=== PATIENT | male | born 1985 | race Caucasian/White ===

== ENCOUNTER 2019-07-18 04:14 | Emergency (ER) | payer MEDICARE, MEDICAID ==
[~2019-07-18] VITALS: Ht 180.3 cm; Wt 100.0 kg
[2019-07-18 04:17] VITALS: BP 13/83
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
== END 2019-07-18 05:57 | disposition home or self-care (01) ==
LOC: ER 04:16
DX: G40.909 Epilepsy, unspecified, not intractable, without status epilepticus (principal); R32 Unspecified urinary incontinence
CPT/HCPCS: 99283

== ENCOUNTER 2020-01-13 14:13 | Emergency (ER) | payer MEDICARE, MEDICAID ==
[~2020-01-13] VITALS: Ht 172.7 cm; Wt 90.0 kg
[2020-01-13 14:32] VITALS: BP 118/85
== END 2020-01-13 15:35 | disposition home or self-care (01) ==
LOC: ER 14:14
DX: S00.12XA Contusion of left eyelid and periocular area, initial encounter (principal); Z86.69 Personal history of other diseases of the nervous system and sense organs; Y09 Assault by unspecified means; Y93.89 Activity, other specified; Y92.89 Other specified places as the place of occurrence of the external cause; Y99.8 Other external cause status
CPT/HCPCS: 99282

== ENCOUNTER 2020-04-30 10:14 | Emergency (ER) | payer MEDICARE, MEDICAID ==
[~2020-04-30] VITALS: Ht 177.8 cm; Wt 85.0 kg
[2020-04-30 10:19] VITALS: BP 122/81
== END 2020-04-30 11:05 | disposition home or self-care (01) ==
LOC: ER 10:15
DX: R56.9 Unspecified convulsions (principal); Z76.0 Encounter for issue of repeat prescription; Z86.69 Personal history of other diseases of the nervous system and sense organs
CPT/HCPCS: 99281

== ENCOUNTER 2021-06-20 22:52 | Emergency (ER) | payer MEDICARE, MEDICAID ==
[~2021-06-20] VITALS: Ht 172.7 cm; Wt 81.8 kg
[2021-06-20 23:18] VITALS: BP 140/98
== END 2021-06-21 02:08 | disposition left against medical advice (07) ==
LOC: ER 22:53
DX: G47.00 Insomnia, unspecified (principal); Z53.21 Procedure and treatment not carried out due to patient leaving prior to being seen by health care provider

== ENCOUNTER 2022-11-10 12:33 | Emergency (ER) | payer MEDICARE, MEDICAID ==
[~2022-11-10] VITALS: Ht 172.7 cm; Wt 81.8 kg
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
[2022-11-10] MEDS ORDERED: DIVA500T9 PO (14:41)
[2022-11-10] MEDS ORDERED: BENZ2TAB7 PO (14:41)
[2022-11-10] MEDS ORDERED: LURA80TA4 PO (14:41)
[2022-11-10] MEDS ORDERED: DIVA250T8 PO (14:41)
[2022-11-10 14:52] LABS: CLARITY,URINE CLEAR (Clear); COLOR,URINE STRAW (Yellow); GLUCOSE, URINE NEGATIVE (Neg); KETONES,URINE NEGATIVE (Neg); LEUKOCYTE ESTERASE ,URINE NEGATIVE (Neg); NITRITES, URINE NEGATIVE (Neg); OCCULT BLOOD,URINE TRACE-INTACT (Neg); PH,URINE 6.5 (4.8-8.0); PROTEIN,URINE NEGATIVE (Neg); UROBILINOGEN,URINE 0.2 E.U/dL (0.2-1.0)
[2022-11-10 14:56] LABS: UA COLLECTION TYPE VOIDED
[2022-11-10 14:57] LABS: BACTERIA,URINE NONE SEEN /HPF (Neg); MUCUS STRANDS NONE SEEN /LPF (Neg); RBC,URINE 0-2 /HPF (0-2); SQUAMOUS EPITHELIAL CELL,UR NONE SEEN /LPF (FEW); WBC,URINE 0-4 /HPF (0-4)
[2022-11-10 15:23] LABS: BASOPHILS % (AUTO) 0.1 % (0-1); EOSINOPHILS % (AUTO) 0 % (0-6); HEMATOCRIT 42.5 % (42.0-52.0); HEMOGLOBIN 14.6 g/dl (14.0-17.9); LYMPHOCYTES # (AUTO) 1.5 X10'3 (1.1-4.8); LYMPHOCYTES % (AUTO) 12.5 % (21-51); MEAN CORPUSCULAR HEMOGLOBIN 30.4 PG (27.0-31.0); MEAN CORPUSCULAR HGB CONC 34.3 g/dL (33.0-36.5); MEAN CORPUSCULAR VOLUME 88.8 FL (78-98); MEAN PLATELET VOLUME 7.6 FL (7.4-10.4); MONOCYTES # (AUTO) 1.3 X10'3 (0-0.9); MONOCYTES % (AUTO) 10.6 % (2-12); NEUTROPHILS # (AUTO) 9.5 X10'3 (1.8-7.7); NEUTROPHILS % (AUTO) 76.8 % (42-75); PLATELET COUNT 274 X10'3 (140-440); RED BLOOD COUNT 4.79 X10'6 (4.70-6.10); RED CELL DISTRIBUTION WIDTH 13.3 % (11.5-14.5); WHITE BLOOD COUNT 12.4 X10'3 (4.5-11.0)
[2022-11-10 15:38] LABS: URINE AMPHETAMINE SCREEN NEGATIVE (Neg); URINE BARBITUATE SCREEN NEGATIVE (Neg); URINE BENZODIAZEPINES SCREEN NEGATIVE (Neg); URINE CANNABINOID SCREEN NEGATIVE (Neg); URINE COCAINE SCREEN NEGATIVE (Neg); URINE METHADONE SCREEN NEGATIVE (Neg); URINE OPIATE SCREEN NEGATIVE (Neg); URINE PHENCYCLIDINE SCREEN NEGATIVE (Neg)
[2022-11-10 15:39] LABS: ALANINE AMINOTRANSFERASE 29 U/L (12-78); ALBUMIN 3.9 G/DL (3.4-5.0); ALKALINE PHOSPHATASE 91 IU/L (46-116); ANION GAP 9 (8-16); ASPARTATE AMINO TRANSFERASE 28 U/L (10-37); BILIRUBIN,TOTAL 0.5 MG/DL (0.1-1.0); BLOOD UREA NITROGEN 2 MG/DL (7-18); BUN/CREATININE RATIO 2.8 (10.0-20.0); CALCIUM 9.4 MG/DL (8.5-10.1); CHLORIDE 97 MMOL/L (99-107); CREATININE 0.72 MG/DL (0.60-1.10); GLUCOSE 99 MG/DL (70-104); POTASSIUM 3.7 MMOL/L (3.5-5.1); SODIUM 135 MMOL/L (135-145); TOTAL PROTEIN 7.7 G/DL (6.4-8.2); eGFR > 90 ML/MIN
[2022-11-10 17:31] VITALS: BP 120/92
== END 2022-11-10 17:37 | disposition home or self-care (01) ==
LOC: ER 12:34
DX: R41.82 Altered mental status, unspecified (principal); R56.9 Unspecified convulsions; L90.5 Scar conditions and fibrosis of skin; Z88.0 Allergy status to penicillin; Z79.899 Other long term (current) drug therapy; W19.XXXA Unspecified fall, initial encounter; Y93.89 Activity, other specified; Y92.89 Other specified places as the place of occurrence of the external cause; Y99.8 Other external cause status
CPT/HCPCS: 36415; 80053; 80305; 81001; 85025; 99285

== ENCOUNTER 2023-01-02 22:16 | Emergency (ER) | payer MEDICARE, MEDICAID ==
[~2023-01-02] VITALS: Ht 172.7 cm; Wt 82.0 kg
[~2023-01-02 22:16] MED LIST: BENZ2TAB65 PO; DIVA250T8 PO; DIVA500T9 PO; LURA80TA4 PO
[2023-01-03] MEDS ORDERED: normal saline 1000ML IV soln IVB ONE (06:30)
[2023-01-03] MEDS ORDERED: levetiracetam inj 1,000 MG in normal saline 100ml IV soln 90 ML IV ONE (06:35)
[2023-01-03] MEDS ORDERED: levetiracetam inj 1,000 MG in normal saline 100ml IV soln 100 ML IV ONE (06:35)
--- NOTE | 2023-01-03 06:57 | NUR ---
Patient just arrived to ER bed 1 not too long ago. Pt was placed immediately into this room after a witnessed seizure while in the triage waiting to get in. Attempted to place a peripheral IV multiple times without success at this time. Pt's mouth was suctioned when he got to the room.
[2023-01-03 07:59] LABS: BASOPHILS % (AUTO) 0.4 % (0-1); EOSINOPHILS # (AUTO) 0.1 X10'3 (0-0.9); HEMATOCRIT 41.2 % (42.0-52.0); HEMOGLOBIN 14.6 g/dl (14.0-17.9); LYMPHOCYTES # (AUTO) 1.2 X10'3 (1.1-4.8); LYMPHOCYTES % (AUTO) 21.1 % (21-51); MEAN CORPUSCULAR HEMOGLOBIN 31.6 PG (27.0-31.0); MEAN CORPUSCULAR HGB CONC 35.5 g/dL (33.0-36.5); MEAN CORPUSCULAR VOLUME 88.9 FL (78-98); MEAN PLATELET VOLUME 7.9 FL (7.4-10.4); MONOCYTES # (AUTO) 0.6 X10'3 (0-0.9); MONOCYTES % (AUTO) 10.6 % (2-12); NEUTROPHILS # (AUTO) 3.8 X10'3 (1.8-7.7); NEUTROPHILS % (AUTO) 66.9 % (42-75); PLATELET COUNT 183 X10'3 (140-440); RED BLOOD COUNT 4.63 X10'6 (4.70-6.10); RED CELL DISTRIBUTION WIDTH 12.6 % (11.5-14.5); WHITE BLOOD COUNT 5.6 X10'3 (4.5-11.0)
[2023-01-03 08:26] LABS: ALANINE AMINOTRANSFERASE 16 U/L (12-78); ALBUMIN 4.2 G/DL (3.4-5.0); ALBUMIN/GLOBULIN RATIO 1.3 (1.1-1.5); ALKALINE PHOSPHATASE 76 IU/L (46-116); ANION GAP 16 (8-16); ASPARTATE AMINO TRANSFERASE 18 U/L (10-37); BILIRUBIN,TOTAL 0.8 MG/DL (0.1-1.0); BLOOD UREA NITROGEN 2 MG/DL (7-18); BUN/CREATININE RATIO 2.4 (10.0-20.0); CHLORIDE 89 MMOL/L (99-107); CREATININE 0.82 MG/DL (0.60-1.10); GLUCOSE 98 MG/DL (70-104); POTASSIUM 3.2 MMOL/L (3.5-5.1); SODIUM 125 MMOL/L (135-145); TOTAL CARBON DIOXIDE 19.6 MMOL/L (24-32); TOTAL PROTEIN 7.4 G/DL (6.4-8.2); eGFR > 90 ML/MIN
[2023-01-03 08:34] LABS: ETHANOL < 0.010 GM/DL (0.0-0.010)
[2023-01-03 08:38] LABS: CLARITY,URINE CLEAR (Clear); COLOR,URINE STRAW (Yellow); GLUCOSE, URINE NEGATIVE (Neg); KETONES,URINE NEGATIVE (Neg); LEUKOCYTE ESTERASE ,URINE NEGATIVE (Neg); NITRITES, URINE NEGATIVE (Neg); OCCULT BLOOD,URINE SMALL (Neg); PROTEIN,URINE TRACE mg/dl (Neg); UROBILINOGEN,URINE 0.2 E.U/dL (0.2-1.0)
[2023-01-03 08:39] LABS: UA COLLECTION TYPE NON-SPECIFIED
[2023-01-03 08:48] LABS: URINE AMPHETAMINE SCREEN NEGATIVE (Neg); URINE BARBITUATE SCREEN NEGATIVE (Neg); URINE BENZODIAZEPINES SCREEN NEGATIVE (Neg); URINE CANNABINOID SCREEN NEGATIVE (Neg); URINE COCAINE SCREEN NEGATIVE (Neg); URINE METHADONE SCREEN NEGATIVE (Neg); URINE OPIATE SCREEN NEGATIVE (Neg); URINE PHENCYCLIDINE SCREEN NEGATIVE (Neg)
[2023-01-03 08:53] LABS: BACTERIA,URINE NONE SEEN /HPF (Neg); MUCUS STRANDS NONE SEEN /LPF (Neg); RBC,URINE NONE SEEN /HPF (0-2); SQUAMOUS EPITHELIAL CELL,UR FEW /LPF (FEW); WBC,URINE 0-4 /HPF (0-4)
[2023-01-03] MEDS ORDERED: normal saline 1000ml 1,000 ML IV ONE (09:20)
[2023-01-03] MEDS ORDERED: POTASSIUM BICARB 20meq eff tab 20 MEQ TABLET.EFF PO ONE (09:42)
[2023-01-03] MEDS ORDERED: iohexol 300mg/ml 100ml inj. ONE (09:47)
--- NOTE | 2023-01-03 14:09 | NUR ---
Sister Debby [phone]; father Palmer [phone]
--- NOTE | 2023-01-03 16:43 | NUR ---
Paranoid. Meds. Had seizure today, HX of same. HX TBI. Depression.
[2023-01-03] MEDS ORDERED: LACO100T4 PO (17:18)
--- NOTE | 2023-01-03 19:53 | NUR ---
Received pt eating dinner, no s/s of distress noted. Pt requesting HS meds.
[2023-01-03] MEDS: divalproex sod 250mg ER (24-hour) tablet PO SCH (20:18)
[2023-01-03] MEDS: LACOSAMIDE 50 MG TABLET PO SCH (20:19)
--- NOTE | 2023-01-03 22:07 | NUR ---
PACKET SENT AND RECEIVED TO [facility]
--- NOTE | 2023-01-04 00:06 | NUR ---
Pt appears to be sleeping.
--- NOTE | 2023-01-04 03:20 | NUR ---
Pt appears to be sleeping.
--- NOTE | 2023-01-04 05:34 | NUR ---
Pt is sleeping.
--- NOTE | 2023-01-04 06:35 | NUR ---
Patient sleeping on his left side. No distress observed. Continue to monitor.
[2023-01-04] MEDS ORDERED: lurasidone 20mg tablet PO SCH (08:00)
--- NOTE | 2023-01-04 08:17 | NUR ---
Patient sitting up and eating breakfast. Patient is very childlike. No distress observed. Continue to monitor.
[2023-01-04] MEDS: divalproex sod 250mg ER (24-hour) tablet PO SCH (08:38)
[2023-01-04] MEDS: LACOSAMIDE 50 MG TABLET PO SCH (08:51)
[2023-01-04 09:03] VITALS: BP 107/58
--- NOTE | 2023-01-04 09:50 | NUR ---
Patient is happy and asking a lot of questions. No distress observed. Continue to monitor
--- NOTE | 2023-01-04 11:16 | NUR ---
Patient to be discharged. RN awaiting instructions from EDVIN Ga. Patient is waiting in his room. States his dad lives in [place]. [facility] states patient's dad lives in [facility] next to him. Continue to monitor.
== END 2023-01-04 13:59 | disposition home or self-care (01) ==
LOC: ER 22:16
DX: F60.0 Paranoid personality disorder (principal); E86.0 Dehydration; Z88.0 Allergy status to penicillin; Z79.899 Other long term (current) drug therapy
CPT/HCPCS: 36415; 80053; 80164; 80305; 80320; 81001; 82948; 84145; 84443; 84484; 85025; 87081; 87880; 93005; 96361; 96365; 99285; J1953; J3490; J7030; Q9967

== ENCOUNTER 2023-06-09 13:07 | Emergency (ER) | payer MEDICARE, MEDICAID ==
[~2023-06-09] VITALS: Ht 172.7 cm; Wt 82.0 kg
[~2023-06-09 13:07] MED LIST changes: -BENZ2TAB65 PO; -DIVA250T8 PO; +LACO100T4 PO
--- NOTE | 2023-06-09 13:18 | NUR ---
SEIZURE PADS APPLIED TO BED BY MAHNAZ PARMAR.
[2023-06-09] MEDS ORDERED: ringers solution, lacted 1,000 ML IV ONE (14:25)
[2023-06-09 15:09] LABS: BASOPHILS % (AUTO) 0.3 % (0-1); EOSINOPHILS % (AUTO) 0.1 % (0-6); HEMATOCRIT 38.4 % (42.0-52.0); HEMOGLOBIN 13.1 g/dl (14.0-17.9); LYMPHOCYTES # (AUTO) 1.2 X10'3 (1.1-4.8); LYMPHOCYTES % (AUTO) 10.1 % (21-51); MEAN CORPUSCULAR HEMOGLOBIN 31.2 PG (27.0-31.0); MEAN CORPUSCULAR HGB CONC 34.2 g/dL (33.0-36.5); MEAN CORPUSCULAR VOLUME 91.1 FL (78-98); MEAN PLATELET VOLUME 7.7 FL (7.4-10.4); MONOCYTES # (AUTO) 1.2 X10'3 (0-0.9); NEUTROPHILS # (AUTO) 9.8 X10'3 (1.8-7.7); NEUTROPHILS % (AUTO) 79.5 % (42-75); PLATELET COUNT 207 X10'3 (140-440); RED BLOOD COUNT 4.21 X10'6 (4.70-6.10); RED CELL DISTRIBUTION WIDTH 12.5 % (11.5-14.5); WHITE BLOOD COUNT 12.3 X10'3 (4.5-11.0)
[2023-06-09] MEDS ORDERED: LORazepam 2 mg/ml vial IV ONE (15:10)
[2023-06-09 15:27] LABS: ALANINE AMINOTRANSFERASE 15 U/L (12-78); ALBUMIN 3.6 G/DL (3.4-5.0); ALKALINE PHOSPHATASE 84 IU/L (46-116); ANION GAP 6 (8-16); ASPARTATE AMINO TRANSFERASE 12 U/L (10-37); BILIRUBIN,TOTAL 0.5 MG/DL (0.1-1.0); BLOOD UREA NITROGEN 5 MG/DL (7-18); BUN/CREATININE RATIO 7.1 (10.0-20.0); CALCIUM 9.2 MG/DL (8.5-10.1); CHLORIDE 97 MMOL/L (99-107); GLUCOSE 115 MG/DL (70-104); SODIUM 131 MMOL/L (135-145); TOTAL CARBON DIOXIDE 28.4 MMOL/L (24-32); TOTAL PROTEIN 7.2 G/DL (6.4-8.2); eCRCL 143 ML/MIN; eGFR > 90 ML/MIN
[2023-06-09 15:30] LABS: CREATINE KINASE 105 U/L (39-308)
[2023-06-09 15:32] LABS: POTASSIUM 3.5 MMOL/L (3.5-5.1)
--- NOTE | 2023-06-09 15:34 | NUR ---
PER PT ALL HEALTH INFO MAY BE SHARED WITH HIS SISTER LAURA AND HIS DAD ADALGISA. RN SPOKE WITH HIS SISTER LAURA AND SHE IS WILLING TO PROVIDE TRANSPORTATION IF PT IS DISCHARGED.
--- NOTE | 2023-06-09 15:40 | NUR ---
PT TAKEN TO CT.
--- NOTE | 2023-06-09 16:15 | NUR ---
LAB DID NOT RECEIVE URINE RN SENT. 2ND SAMPLE WILL BE SENT.
[2023-06-09 16:55] LABS: BILIRUBIN,URINE NEGATIVE (Neg); CLARITY,URINE CLEAR (Clear); COLOR,URINE STRAW (Yellow); GLUCOSE, URINE NEGATIVE (Neg); KETONES,URINE NEGATIVE (Neg); LEUKOCYTE ESTERASE ,URINE MODERATE (Neg); NITRITES, URINE NEGATIVE (Neg); OCCULT BLOOD,URINE TRACE-INTACT (Neg); PH,URINE 5.5 (4.8-8.0); PROTEIN,URINE NEGATIVE (Neg); URINE AMPHETAMINE SCREEN NEGATIVE (Neg); URINE BARBITUATE SCREEN NEGATIVE (Neg); URINE BENZODIAZEPINES SCREEN NEGATIVE (Neg); URINE CANNABINOID SCREEN NEGATIVE (Neg); URINE COCAINE SCREEN NEGATIVE (Neg); URINE OPIATE SCREEN NEGATIVE (Neg); URINE PHENCYCLIDINE SCREEN NEGATIVE (Neg); UROBILINOGEN,URINE 0.2 E.U/dL (0.2-1.0)
[2023-06-09 17:32] LABS: UA COLLECTION TYPE CLN CATCH MIDSTREAM
[2023-06-09 17:35] VITALS: TEMP 98.7
--- NOTE | 2023-06-09 17:38 | NUR ---
PT AAOX4 AT THIS TIME.
[2023-06-09 17:43] LABS: SQUAMOUS EPITHELIAL CELL,UR FEW /LPF (FEW)
[2023-06-09 17:44] LABS: BACTERIA,URINE FEW /HPF (Neg); RBC,URINE 0-2 /HPF (0-2); WBC CLUMPS,URINE FEW /HPF (NEGATIVE)
[2023-06-09] MEDS ORDERED: CEPH-585 PO (18:51)
[2023-06-09 18:55] VITALS: BP 129/80; PULSE 96; RESP 18; O2SAT 96
== END 2023-06-09 19:26 | disposition home or self-care (01) ==
LOC: ER 13:07
DX: G40.909 Epilepsy, unspecified, not intractable, without status epilepticus (principal); N39.0 Urinary tract infection, site not specified; Z91.030 Bee allergy status; Z88.0 Allergy status to penicillin; Z79.899 Other long term (current) drug therapy
CPT/HCPCS: 36415; 70450; 71045; 80053; 80164; 80305; 81001; 82550; 84484; 85025; 93005; 96374; 99285; J2060; J7120

== ENCOUNTER 2024-01-29 13:52 | Emergency (ER) | payer MEDICARE, MEDICAID ==
[~2024-01-29] VITALS: Ht 177.8 cm; Wt 100.0 kg
[2024-01-29 13:59] VITALS: BP 126/86; PULSE 96; RESP 18; TEMP 98.8; O2SAT 98
== END 2024-01-29 15:40 | disposition left against medical advice (07) ==
LOC: ER 13:52
DX: S06.9XAA Unspecified intracranial injury with loss of consciousness status unknown, initial encounter (principal); R41.82 Altered mental status, unspecified; Z79.899 Other long term (current) drug therapy; X58.XXXA Exposure to other specified factors, initial encounter; Y93.89 Activity, other specified; Y92.89 Other specified places as the place of occurrence of the external cause; Y99.8 Other external cause status
CPT/HCPCS: 99281; 99283

== ENCOUNTER 2024-02-22 18:03 | Emergency (ER) | payer MEDICARE, MEDICAID ==
[~2024-02-22] VITALS: Ht 177.8 cm; Wt 79.8 kg
[2024-02-22 22:03] VITALS: BP 111/75; PULSE 75; RESP 17; TEMP 99.1; O2SAT 99
== END 2024-02-22 22:04 | disposition home or self-care (01) ==
LOC: ER 18:03
DX: G40.802 Other epilepsy, not intractable, without status epilepticus (principal); F31.9 Bipolar disorder, unspecified; Z79.899 Other long term (current) drug therapy
CPT/HCPCS: 36415; 80164; 82948; 99283

== ENCOUNTER 2024-03-26 21:44 | Emergency (ER) | payer MEDICARE, MEDICAID ==
[~2024-03-26] VITALS: Ht 177.8 cm; Wt 82.5 kg
[2024-03-26] MEDS: LORazepam 2 mg/ml vial IM ONE (22:17)
[2024-03-26 22:28] LABS: BASOPHILS # (AUTO) 0.1 X10'3 (0-0.2); RED CELL DISTRIBUTION WIDTH 12.9 % (11.5-14.5)
[2024-03-26 22:29] LABS: BASOPHILS % (AUTO) 0.5 % (0-1); EOSINOPHILS # (AUTO) 0.4 X10'3 (0-0.9); HEMATOCRIT 41.9 % (42.0-52.0); HEMOGLOBIN 14.2 g/dl (14.0-17.9); LYMPHOCYTES # (AUTO) 6.2 X10'3 (1.1-4.8); LYMPHOCYTES % (AUTO) 51.2 % (21-51); MEAN CORPUSCULAR HEMOGLOBIN 31.8 PG (27.0-31.0); MEAN CORPUSCULAR HGB CONC 33.8 g/dL (33.0-36.5); MEAN CORPUSCULAR VOLUME 94.2 FL (78-98); MEAN PLATELET VOLUME 8.7 FL (7.4-10.4); MONOCYTES # (AUTO) 1.3 X10'3 (0-0.9); MONOCYTES % (AUTO) 10.8 % (2-12); NEUTROPHILS # (AUTO) 4.2 X10'3 (1.8-7.7); NEUTROPHILS % (AUTO) 34.5 % (42-75); PLATELET COUNT 260 X10'3 (140-440); RED BLOOD COUNT 4.45 X10'6 (4.70-6.10); WHITE BLOOD COUNT 12.2 X10'3 (4.5-11.0)
[2024-03-26 22:38] LABS: ALBUMIN 4.1 G/DL (3.4-5.0); ANION GAP 25 (8-16); BLOOD UREA NITROGEN 7 MG/DL (7-18); BUN/CREATININE RATIO 5.9 (10.0-20.0); CALCIUM 8.8 MG/DL (8.5-10.1); CHLORIDE 93 MMOL/L (99-107); CREATININE 1.19 MG/DL (0.60-1.10); GLUCOSE 126 MG/DL (70-104); MAGNESIUM 1.7 MG/DL (1.5-2.4); POTASSIUM 3.1 MMOL/L (3.5-5.1); SODIUM 132 MMOL/L (135-145); eCRCL 89 ML/MIN; eGFR 69 ML/MIN
[2024-03-26] MEDS: levetiracetam inj 1,000 MG in normal saline 100ml IV soln 100 ML IV ONE (22:40)
[2024-03-26 23:04] LABS: BURR CELLS FEW; ELLIPTOCYTES FEW; PLATELET ESTIMATE NORMAL; TOTAL CELLS COUNTED 100
[2024-03-26] MEDS: normal saline 1000ML IV soln IVB ONE (23:18)
[2024-03-26] MEDS: potassium Cl 20 mEq SR tablet PO STA (23:19)
[2024-03-27 00:57] LABS: BILIRUBIN,URINE NEGATIVE (Neg); CLARITY,URINE CLEAR (Clear); COLOR,URINE STRAW (Yellow); GLUCOSE, URINE NEGATIVE (Neg); KETONES,URINE NEGATIVE (Neg); LEUKOCYTE ESTERASE ,URINE NEGATIVE (Neg); NITRITES, URINE NEGATIVE (Neg); OCCULT BLOOD,URINE NEGATIVE (Neg); PROTEIN,URINE NEGATIVE (Neg); UROBILINOGEN,URINE 0.2 E.U/dL (0.2-1.0)
[2024-03-27 01:01] LABS: ALBUMIN 3.4 G/DL (3.4-5.0); ANION GAP 7 (8-16); BLOOD UREA NITROGEN 6 MG/DL (7-18); BUN/CREATININE RATIO 6.7 (10.0-20.0); CALCIUM 8.3 MG/DL (8.5-10.1); CHLORIDE 98 MMOL/L (99-107); CREATININE 0.89 MG/DL (0.60-1.10); GLUCOSE 112 MG/DL (70-104); POTASSIUM 3.4 MMOL/L (3.5-5.1); SODIUM 131 MMOL/L (135-145); TOTAL CARBON DIOXIDE 25.6 MMOL/L (24-32); eCRCL 118 ML/MIN; eGFR > 90 ML/MIN
[2024-03-27 01:02] LABS: UA COLLECTION TYPE CLN CATCH MIDSTREAM
[2024-03-27 07:59] VITALS: BP 113/83; PULSE 84; RESP 16; TEMP 98.3; O2SAT 99
== END 2024-03-27 08:03 | disposition home or self-care (01) ==
LOC: ER 21:45
DX: G40.909 Epilepsy, unspecified, not intractable, without status epilepticus (principal); F31.9 Bipolar disorder, unspecified; Z91.030 Bee allergy status; Z88.0 Allergy status to penicillin; Z79.1 Long term (current) use of non-steroidal anti-inflammatories (NSAID); Z79.899 Other long term (current) drug therapy
CPT/HCPCS: 36415; 71045; 80048; 81003; 83735; 84484; 85007; 85025; 96365; 96366; 96372; 99285; J1953; J2060; J7030

== ENCOUNTER 2024-03-31 16:14 | Emergency (ER) | payer MEDICARE, MEDICAID ==
[~2024-03-31] VITALS: Ht 175.3 cm; Wt 84.1 kg
[2024-03-31 16:16] VITALS: TEMP 97.8
[2024-03-31 17:45] VITALS: BP 180/81; PULSE 92; RESP 18; O2SAT 98
== END 2024-03-31 17:48 | disposition home or self-care (01) ==
LOC: ER 16:15
DX: G40.802 Other epilepsy, not intractable, without status epilepticus (principal); Z87.820 Personal history of traumatic brain injury; F31.9 Bipolar disorder, unspecified; Z79.899 Other long term (current) drug therapy
CPT/HCPCS: 99283

== ENCOUNTER 2024-06-23 09:40 | Emergency (ER) | payer MEDICARE, MEDICAID ==
[~2024-06-23] VITALS: Ht 172.7 cm; Wt 84.0 kg
[2024-06-23 09:48] VITALS: BP 133/69; PULSE 94; TEMP 97.6; O2SAT 100
[2024-06-23 10:40] VITALS: RESP 16
== END 2024-06-23 10:51 | disposition left against medical advice (07) ==
LOC: ER 09:41
DX: R06.02 Shortness of breath (principal); Z53.21 Procedure and treatment not carried out due to patient leaving prior to being seen by health care provider

== ENCOUNTER 2024-08-04 14:05 | Emergency (ER) | payer MEDICARE, MEDICAID ==
[~2024-08-04] VITALS: Ht 177.8 cm; Wt 87.6 kg
[2024-08-04 14:31] VITALS: BP 136/93; PULSE 85; RESP 18; TEMP 98; O2SAT 100
[2024-08-04] MEDS ORDERED: CefTRIAXone 1000mg IM Kit (w/lidocaine diluent) IM ONE (15:10)
== END 2024-08-04 15:28 | disposition home or self-care (01) ==
LOC: ER 14:06
DX: S06.9XAA Unspecified intracranial injury with loss of consciousness status unknown, initial encounter (principal); F31.9 Bipolar disorder, unspecified; Z91.030 Bee allergy status; Z88.0 Allergy status to penicillin; X58.XXXA Exposure to other specified factors, initial encounter; Y93.89 Activity, other specified; Y92.89 Other specified places as the place of occurrence of the external cause; Y99.8 Other external cause status
CPT/HCPCS: 96372; 99283

== ENCOUNTER 2024-09-14 10:12 | Emergency (ER) | payer MEDICARE, MEDICAID ==
[~2024-09-14] VITALS: Ht 171.4 cm; Wt 81.5 kg
[2024-09-14 10:25] VITALS: TEMP 97.6
[2024-09-14 12:24] VITALS: BP 122/88; PULSE 75; RESP 18; O2SAT 99
== END 2024-09-14 14:42 | disposition left against medical advice (07) ==
LOC: ER 10:13
DX: G83.9 Paralytic syndrome, unspecified (principal); Z88.0 Allergy status to penicillin; Z91.030 Bee allergy status; Z53.21 Procedure and treatment not carried out due to patient leaving prior to being seen by health care provider

== ENCOUNTER 2024-10-27 16:17 | Emergency (ER) | payer MEDICARE, MEDICAID ==
[~2024-10-27] VITALS: Ht 175.3 cm; Wt 82.7 kg
[2024-10-27 20:07] VITALS: BP 128/84; PULSE 97; RESP 18; TEMP 98.6; O2SAT 99
== END 2024-10-27 20:12 | disposition home or self-care (01) ==
LOC: ER 16:18
DX: S09.90XA Unspecified injury of head, initial encounter (principal); S30.0XXA Contusion of lower back and pelvis, initial encounter; Z88.0 Allergy status to penicillin; Z91.030 Bee allergy status; X58.XXXA Exposure to other specified factors, initial encounter; Y93.89 Activity, other specified; Y92.89 Other specified places as the place of occurrence of the external cause; Y99.8 Other external cause status
CPT/HCPCS: 70450; 72080; 99284

== ENCOUNTER 2024-11-02 17:03 | Emergency (ER) | payer MEDICARE, MEDICAID ==
[~2024-11-02] VITALS: Ht 172.7 cm; Wt 85.0 kg
[2024-11-02 19:36] LABS: BASOPHILS % (AUTO) 0.5 % (0-1); EOSINOPHILS # (AUTO) 0.1 X10'3 (0-0.9); EOSINOPHILS % (AUTO) 1.4 % (0-6); HEMATOCRIT 40.4 % (42.0-52.0); LYMPHOCYTES # (AUTO) 2.3 X10'3 (1.1-4.8); LYMPHOCYTES % (AUTO) 29.3 % (21-51); MEAN CORPUSCULAR HEMOGLOBIN 31.5 PG (27.0-31.0); MEAN CORPUSCULAR HGB CONC 34.6 g/dL (33.0-36.5); MEAN CORPUSCULAR VOLUME 91.1 FL (78-98); MEAN PLATELET VOLUME 8.4 FL (7.4-10.4); MONOCYTES # (AUTO) 0.6 X10'3 (0-0.9); MONOCYTES % (AUTO) 7.2 % (2-12); NEUTROPHILS # (AUTO) 4.9 X10'3 (1.8-7.7); NEUTROPHILS % (AUTO) 61.6 % (42-75); PLATELET COUNT 243 X10'3 (140-440); RED BLOOD COUNT 4.43 X10'6 (4.70-6.10); RED CELL DISTRIBUTION WIDTH 12.1 % (11.5-14.5); WHITE BLOOD COUNT 7.9 X10'3 (4.5-11.0)
[2024-11-02 19:49] LABS: ALANINE AMINOTRANSFERASE 15 U/L (12-78); ALBUMIN 3.9 G/DL (3.4-5.0); ALKALINE PHOSPHATASE 131 IU/L (46-116); ANION GAP 9 (8-16); ASPARTATE AMINO TRANSFERASE 14 U/L (10-37); BILIRUBIN,TOTAL 0.5 MG/DL (0.1-1.0); BLOOD UREA NITROGEN 10 MG/DL (7-18); BUN/CREATININE RATIO 14.3 (10.0-20.0); CALCIUM 9.2 MG/DL (8.5-10.1); CHLORIDE 97 MMOL/L (99-107); GLUCOSE 93 MG/DL (70-104); POTASSIUM 3.6 MMOL/L (3.5-5.1); SODIUM 135 MMOL/L (135-145); TOTAL CARBON DIOXIDE 29.4 MMOL/L (24-32); eCRCL 141 ML/MIN; eGFR > 90 ML/MIN
[2024-11-02 20:34] VITALS: BP 128/74; PULSE 101; RESP 16; TEMP 98.4; O2SAT 98
== END 2024-11-02 20:36 | disposition home or self-care (01) ==
LOC: ER 17:04
DX: Z00.00 Encounter for general adult medical examination without abnormal findings (principal); F31.9 Bipolar disorder, unspecified; Z79.899 Other long term (current) drug therapy; Z59.00 Homelessness unspecified
CPT/HCPCS: 36415; 80053; 85025; 99283

== ENCOUNTER 2025-02-22 19:30 | Emergency (ER) | payer MEDICARE, MEDICAID ==
[~2025-02-22] VITALS: Ht 172.7 cm; Wt 85.0 kg
--- NOTE | 2025-02-22 20:14 | RADIOLOGY REPORT ---
EXAM: DI FOOT, COMPLETE (3VW MIN) HISTORY: FOOT PAIN COMPARISON: None TECHNIQUE: DI FOOT, COMPLETE (3VW MIN) FINDINGS: There is no fracture or dislocation. No significant degenerative changes or soft tissue abnormality. IMPRESSION: 1. Unremarkable examination
--- NOTE | 2025-02-22 21:36 | Physician Documentation ---
History of Present Illness ~ Chief Complaint: Foot pain Stated Complaint: FOOT PAIN Time Seen by MD: 20:04 Primary Medical Doctor: unknown HPI Patient is seen today with complaints of right-sided foot pain for a few days in his heel. Patient denies any injury. He has no other concern or complaint at this time. Tetanus witin 5 years: Yes (unknown last date) Medication Reconciliation Allergies: Coded Allergies: Penicillins (Verified Allergy, Unknown, 02/22/25) >5 years, unknown reaction, unknown treatment, PEN-FAST unknown bee venom protein (honey bee) (Verified Allergy, Unknown, 02/22/25) Scheduled Divalproex ER* (Depakote ER*), 1 TAB PO BID, (Reported) Lacosamide (Lacosamide), 1 TAB PO BID, (Reported) Lurasidone HCl (Lurasidone HCl), 1 TAB PO DAILY, (Reported) Past Medical History Past Medical History: Seizures, Bipolar Alcohol Use: None Lives with: Family Lives In: Home Review of Systems Constitutional: Denies: chills, fever, weakness Eyes: Denies: pain, blurred vision ENT: Denies: ear pain, nose pain, throat pain, mouth pain Respiratory: Denies: cough, shortness of breath Cardiovascular: Denies: chest pain, palpitations Gastrointestinal: Denies: abdominal pain, nausea, vomiting Genitourinary: Denies: burning, dysuria Male Genitalia: Denies: penile discharge, testicular pain Neurological: Denies: headache, dizziness Musculoskeletal: Denies: pain, swelling Integumentary: Denies: rash, lesions Allergic/Immunologic: Denies: hives, itching Hematologic/Lymphatic: Denies: no symptoms reported Psychiatric: Denies: depression, anxiety Physical Exam Vital Signs: Temperature: 97.6, Source: Temporal, Heart Rate: 90, Respiratory Rate: 15, BP: 113/73, Pulse Oximetry: 99, Weight: 85.000 Physical Exam General: Awake and Alert, no acute distress. HEENT: Conjunctiva pink, Sclera clear, Mucus Membranes moist. Neck: Supple without masses and tenderness. Resp: Unlabored. Lungs clear to auscultation bilaterally. Heart: Regular Rate and rhythm, normal S1 and S2 without murmur, rub or gallop. Musculoskeletal: Patient on exam has no significant erythema or swelling of the right foot and no tenderness to palpation of any bony prominence. Patient only has tenderness to palpation of the plantar aspect of the heel of the right lower extremity. Patient is neurovascularly intact distally. Strength intact and range of motion intact of the right ankle. Extremities: No cyanosis,clubbing or edema. Skin: Warm and Dry. Progress Results/Orders Results/Orders Vital Signs 02/22/25 19:33 Temp 97.6 Pulse 90 Resp 15 B/P (MAP) 113/73 Pulse Ox 99 EKG/XRAY/CT/US/VASC/MRI Bone/Soft Tissue X-Ray (Ext.) : Additional Comment X-ray of the foot interpreted by myself today shows no sign of acute fracture, bones in anatomic alignment, no osteolytic or blastic lesions. DIAGNOSTIC RADIOLOGY Patient: KAILA HOLT Medical Record: [id number] [facility] : 1985, Age: 39 Sex: Male Location: ER Patient Status: [facility] ER Service Date/Time: 02/22/251948 Ordering Physician: HUNG WU MD Exam: FOOT, COMPLETE (3VW MIN) EXAM: DI FOOT, COMPLETE (3VW MIN) HISTORY: FOOT PAIN COMPARISON: None TECHNIQUE: DI FOOT, COMPLETE (3VW MIN) FINDINGS: There is no fracture or dislocation. No significant degenerative changes or soft tissue abnormality. IMPRESSION: 1. Unremarkable examination Electronically Signed by:GLO CEDILLO MD Date & Time: 02/22/252011 Dictated by: GLO CEDILLO MD Dictation date and time: 02/22/252011 Primary Care Provider: NO PRIMARY CARE PROVIDER cc: HUNG WU MD ~ Medical Decision Making Findings Patient is seen today with complaints of right-sided foot pain for a few days in his heel. Patient denies any injury. He has no other concern or complaint at this time. X-ray of right foot and ankle showed no sign of acute fracture, patient likely has plantar fasciitis of the right foot. Patient will follow up with primary care and get referral to physical therapy as soon as possible. Return to ED with any worsening, concerning or changing symptoms. Patient will take Tylenol and ibuprofen as needed for symptomatic relief. Departure Disposition: HOME / SELF CARE / HOMELESS Impression: Primary Impression: Plantar fasciitis, right Condition: Stable Discharge Instructions: Plantar Fasciitis, Plantar Fasciitis Rehab Additional Instructions: X-ray of right foot and ankle showed no sign of acute fracture, patient likely has plantar fasciitis of the right foot. Patient will follow up with primary care and get referral to physical therapy as soon as possible. Return to ED with any worsening, concerning or changing symptoms. Patient will take Tylenol and ibuprofen as needed for symptomatic relief. Referrals: NO PRIMARY CARE PROVIDER (PCP) Signature Scribe Signature: No scribe Attestation: No scribe LISS TOWNSEND PAC Feb 22, 2025 21:36
[2025-02-22 22:55] VITALS: BP 114/72; PULSE 89; RESP 16; TEMP 98.6; O2SAT 99
== END 2025-02-22 22:56 | disposition home or self-care (01) ==
LOC: ER 19:31
DX: M72.2 Plantar fascial fibromatosis (principal); Z88.0 Allergy status to penicillin; Z91.030 Bee allergy status
CPT/HCPCS: 73630; 99283

== ENCOUNTER 2025-03-12 11:32 | Emergency (ER) | payer MEDICARE, MEDICAID ==
[~2025-03-12] VITALS: Ht 170.2 cm; Wt 82.0 kg
[2025-03-12 11:44] VITALS: TEMP 98.3
--- NOTE | 2025-03-12 12:25 | Physician Documentation ---
History of Present Illness ~ Chief Complaint: Foot pain Stated Complaint: SZ FOOT PAIN Time Seen by MD: 11:43 Primary Medical Doctor: unknown HPI 39-year-old male presents to the ED with a complaint of right foot pain. Patient has a history of a TBI in his complaining of right foot pain in the lateral aspect. He adds that he does walk a lot throughout the day.. Denies any acute injury Tetanus witin 5 years: Yes (unknown last date) Medication Reconciliation Allergies: Coded Allergies: Penicillins (Verified Allergy, Unknown, 03/12/25) >5 years, unknown reaction, unknown treatment, PEN-FAST unknown bee venom protein (honey bee) (Verified Allergy, Unknown, 03/12/25) Scheduled Divalproex ER* (Depakote ER*), 1 TAB PO BID, (Reported) Lacosamide (Lacosamide), 1 TAB PO BID, (Reported) Lurasidone HCl (Lurasidone HCl), 1 TAB PO DAILY, (Reported) Past Medical History Past Medical History: Seizures, Bipolar Alcohol Use: None Lives with: Family Lives In: Home Review of Systems All Other Systems at this time: Reviewed and Negative ROS As stated above in the HPI, otherwise all systems are reviewed and negative. Physical Exam Vital Signs: Temperature: 98.3, Source: Oral, Heart Rate: 75, Respiratory Rate: 18, BP: 106/67, Pulse Oximetry: 98, Weight: 82.000 Physical Exam General: Alert, no apparent distress. HEENT: PERRL, EOMI, no injection, moist mucous membranes. Neck: Full range of motion. Respiratory: Lungs clear, no respiratory distress. Chest: No accessory muscle use. Cardiovascular: Regular rate and rhythm, no murmurs. Gastrointestinal: Soft, nontender, nondistended. Bowels sounds present. Extremities: Normal range of motion, no deformity. Neurologic: Oriented x4. Psychiatric: Normal mood and affect. Skin: Normal color, warm and dry. No edema, no ecchymosis. Progress Results/Orders Results/Orders Orders - ZAID COUGHLIN [employer] Ankle, Complete(3vw Min) (03/12/25 12:57) Completed Orders - ZAID COUGHLIN NP Ankle, Complete(3vw Min) (03/12/25 12:57) Vital Signs 03/12/25 03/12/25 03/12/2525 11:36 11:44 12:45 13:29 Temp 98.3 98.3 Pulse 83 75 60 64 Resp 18 18 16 16 B/P (MAP) 122/65 106/67 (80) 101/68 (79) 104/67 (79) Pulse Ox 97 98 98 99 03/12/25 13:57 Pulse 63 Resp 16 B/P (MAP) 106/76 Pulse Ox 98 Departure Disposition: HOME / SELF CARE / HOMELESS Impression: Primary Impression: Sprain of foot Discharge Instructions: Sprains Additional Instructions: Recommend getting some insole inserts for your shoes Referrals: NO PRIMARY CARE PROVIDER (PCP) Signature Scribe Signature: gv Attestation: Scribed for Zaid Coughlin Statistical Clerk by Zaid Suazo NP . 03/12/25 18:05 ZAID COUGHLIN NP Mar 12, 2025 12:25
--- NOTE | 2025-03-12 13:28 | RADIOLOGY REPORT ---
EXAM: DI ANKLE, COMPLETE(3VW MIN) HISTORY: ANKLE PAIN COMPARISON: None TECHNIQUE: Three views of the right ankle were performed. FINDINGS: No acute fracture or dislocation are identified about the right ankle. The mortise is intac t. There is a growth arrest line of the right distal tibial metaphysis. There is a small smoothly mar ginated calcification along the dorsal margin of the talar neck, possibly due to old avulsion fractur e or old ligamentous injury. There is a small Achilles insertion enthesophyte. IMPRESSION: No acute fracture of the right ankle.
[2025-03-12 13:57] VITALS: BP 106/76; PULSE 63; RESP 16; O2SAT 98
[2025-03-15] MEDS ORDERED: LACT-373 PO (17:56)
[2025-03-15] MEDS ORDERED: FOLI0.4T6 PO (18:15)
[2025-03-15] MEDS ORDERED: THIA50TA10 PO (18:15)
[2025-03-16] MEDS ORDERED: LURA20TA8 PO (18:00)
[2025-03-16] MEDS ORDERED: LURA80TA2 PO (18:00)
[2025-03-16] MEDS ORDERED: ARIP5TAB17 PO (18:01)
== END 2025-03-12 14:09 | disposition home or self-care (01) ==
LOC: ER 11:33
DX: S93.601A Unspecified sprain of right foot, initial encounter (principal); Z88.0 Allergy status to penicillin; Z91.030 Bee allergy status; X58.XXXA Exposure to other specified factors, initial encounter; Y93.89 Activity, other specified; Y92.89 Other specified places as the place of occurrence of the external cause; Y99.8 Other external cause status
CPT/HCPCS: 73610; 99283; A6449

== ENCOUNTER 2025-06-23 20:15 | Emergency (ER) | payer MEDICARE, MEDICAID ==
[~2025-06-23] VITALS: Ht 175.3 cm; Wt 72.7 kg
[~2025-06-23 20:15] MED LIST changes: +ARIP5TAB17 PO; -DIVA500T9 PO; -LACO100T4 PO; +LACO200T2 PO; +LURA20TA8 PO; +LURA80TA2 PO; -LURA80TA4 PO
[2025-06-23 20:29] VITALS: BP 142/68; TEMP 98.2; O2SAT 99
--- NOTE | 2025-06-23 21:19 | Physician Documentation ---
History of Present Illness ~ Chief Complaint: Foot pain Stated Complaint: R FOOT PAIN Time Seen by MD: 20:33 Primary Medical Doctor: unknown HPI 39-year-old male with a past medical history of TBI brought him in the ambulance for evaluation of right heel callus. Reports that he does a lot of walking in despite wearing socks he developed a heel callus. He is otherwise well-appe aring. Does not require additional resources. Tetanus witin 5 years: No Medication Reconciliation Allergies: Coded Allergies: Penicillins (Verified Allergy, Unknown, 06/23/25) >5 years, unknown reaction, unknown treatment, PEN-FAST unknown bee venom protein (honey bee) (Verified Allergy, Unknown, 06/23/25) Scheduled Aripiprazole (Abilify), 1 TAB PO DAILY, (Reported) Lacosamide (Vimpat), 1 TAB PO Q12H Lurasidone HCl (Latuda), 1 TAB PO HS, (Reported) Lurasidone HCl (Latuda), 1 TAB PO CCHS, (Reported) Past Medical History Past Medical History: Seizures, Bipolar Patient History: Patient reports no known family medical history. Alcohol Use: Other Drug Use: none Lives with: Alone Lives In: Home Review of Systems All Other Systems at this time: Reviewed and Negative Constitutional: Denies: fever Integumentary: Reports: wound(s) Integumentary Right heel callus Physical Exam Vital Signs: RN Vital Signs have been reviewed: Yes, Temperature: 98.2, Source: Temporal, Heart Rate: 78, Respiratory Rate: 16, BP: 142/68, Pulse Oximetry: 99, Weight: 72.700 General Appearance: alert, WD/WN, mild distress Head: normal inspection EENT: PERRL/EOMI Legs: normal inspection Knees: normal inspection Ligaments: normal Ankles: normal inspection Achilles Tendon: normal Feet: pain, soft tissue tenderness Feet 1 cm heel callus Distal Function: no motor deficit, no sensory deficit Skin: other (Small 1 cm callus to the right heel without abscess purulent discharge) Lymphatic: normal inspection Neurologic: oriented x4 Psychiatric: normal mood/affect Progress Results/Orders Results/Orders Vital Signs 06/23/25 20:29 Temp 98.2 Pulse 78 Resp 16 B/P (MAP) 142/68 Pulse Ox 99 Medical Decision Making Additional information obtaine: N/A Findings Examination history consistent with a heel callus without clinical suspicion for bony involvement or abscess. Topical wound care and a sock provided the patient. All other resources addressed and he will be safely discharged in the emergency department. General Diff Dx:Considerations: Include: Abrasion, Contusion, Fracture, Hematoma, Other Knee Diff Dx:Considerations: Include: Other Ankle Diff Dx:Considerations: Include: Other (Noncontributory) Foot Diff Dx:Considerations: Include: Other (Noncontributory see above) Toe Diff Dx:Considerations: Include: Other (Noncontributory) Departure Disposition: 01 HOME / SELF CARE / HOMELESS Impression: Primary Impression: Heel callus Condition: Stable Discharge Instructions: Corns and Calluses Additional Instructions: Please change socks often. Apply mole skin and/or Band-Aid to callus. If signs of infection present please return to the emergency department. Thank you for visiting [facility]. Referrals: NO PRIMARY CARE PROVIDER (PCP) Education Educated: Patient Educated regarding: diagnosis, treatment, prognosis, need for follow up Signature Scribe Signature: . Attestation: . HUNG TUBBS PAC Jun 23, 2025 21:19
[2025-06-23 21:53] VITALS: PULSE 80; RESP 16
== END 2025-06-23 21:54 | disposition home or self-care (01) ==
LOC: ER 20:17
DX: L84 Corns and callosities (principal); F31.9 Bipolar disorder, unspecified; Z88.0 Allergy status to penicillin; Z91.030 Bee allergy status; Z60.2 Problems related to living alone
CPT/HCPCS: 99283

== ENCOUNTER 2025-06-24 18:31 | Emergency (ER) | payer MEDICARE, MEDICAID ==
[~2025-06-24] VITALS: Ht 172.7 cm; Wt 72.7 kg
[2025-06-24 18:32] VITALS: BP 128/86; PULSE 92; RESP 16; TEMP 97.8; O2SAT 99
== END 2025-06-24 23:04 | disposition left against medical advice (07) ==
LOC: ER 18:31
DX: M79.671 Pain in right foot (principal); Z53.21 Procedure and treatment not carried out due to patient leaving prior to being seen by health care provider; Z88.0 Allergy status to penicillin; Z91.030 Bee allergy status
CPT/HCPCS: 99281